=== PATIENT | female | born 1970 | race Caucasian/White ===

== ENCOUNTER 2017-02-23 01:28 | Observation (INO) | payer MEDICARE, MEDICAID ==
[~2017-02-23] VITALS: Ht 160 cm; Wt 51.0 kg
[2017-02-23 02:17] LABS: HEMATOCRIT 36.9 % (34.6-47.8); HEMOGLOBIN 12.1 g/dL (11.7-16.4); WHITE BLOOD COUNT 9.5 x10^3/uL (3.4-10)
[2017-02-23 02:26] LABS: BLOOD UREA NITROGEN 14 mg/dL (7-18)
[2017-02-23 02:32] LABS: ASPARTATE AMINO TRANSFERASE 14 U/L (15-37)
[2017-02-23 02:36] LABS: ACETAMINOPHEN < 2 mcg/mL (10-30)
[2017-02-23 02:55] LABS: DAU SCREEN DISCLAIMER
[2017-02-23] MEDS ORDERED: LORazepam 1MG TABLET ONE (02:58)
[2017-02-23] MEDS ORDERED: LORazepam 1MG TABLET PO ONE (03:00)
[2017-02-23] MEDS ORDERED: ONDANSETRON ODT 4 MG PO PRN (03:00)
[2017-02-23 03:35] VITALS: BP 139/91
[2017-02-23 08:30] VITALS: BP 121/85
[2017-02-23] MEDS: ACETAMINOPHEN 325 MG TABLET PO PRN ×2 (13:25→23:25)
[2017-02-23 20:38] VITALS: BP 132/86
[2017-02-24] MEDS: ACETAMINOPHEN 325 MG TABLET PO PRN (06:28)
[2017-02-24] MEDS ORDERED: LORazepam 1MG TABLET PO PRN (07:30)
[2017-02-24 08:04] VITALS: BP 131/85
== END 2017-02-24 10:00 ==
LOC: ED 02:25 → EDIP 02:47 → INTOOBSV 02:47 → 3E 03:37
PROVIDERS: ADMIT Internal Medicine; ATTEND Internal Medicine
DX: R45.851 Suicidal ideations (principal); F12.90 Cannabis use, unspecified, uncomplicated; F32.9 Major depressive disorder, single episode, unspecified; F17.200 Nicotine dependence, unspecified, uncomplicated
CPT/HCPCS: 36415; 80053; 80307; 80329; 84443; 84703; 85025; 99285; G0378; G0479; G0480